=== PATIENT | male | born 2000 | race Caucasian/White ===

== ENCOUNTER 2020-05-02 15:48 | Emergency (ER) | payer SELFPAY ==
[~2020-05-02] VITALS: Ht 185.4 cm; Wt 83.9 kg
[2020-05-02] MEDS ORDERED: ONDANSETRON HCL 4 MG/2 ML VIAL IV ONE (16:00)
[2020-05-02] MEDS ORDERED: HYDROmorphone HCL 2 MG/ML VL IV ONE (16:00)
[2020-05-02] MEDS ORDERED: HYDROmorphone HCL 2 MG/ML VL ONE (16:02)
[2020-05-02] MEDS ORDERED: ONDANSETRON HCL 4 MG/2 ML VIAL ONE (16:02)
[2020-05-02] MEDS ORDERED: KETAMINE HCL 10 ML ONE (16:15)
[2020-05-02] MEDS ORDERED: KETAMINE 50mg/ML 10ml Vial (500mg/10ml) IV ONE (16:15)
[2020-05-02] MEDS ORDERED: PROPOFOL 0 ML IV ONE (16:16)
[2020-05-02 17:30] VITALS: BP 138/83
== END 2020-05-02 18:11 | disposition home or self-care (01) ==
LOC: ER 15:48 → EDBD 15:48 → EDSEX 15:48 → ER 18:11
DX: S43.005A Unspecified dislocation of left shoulder joint, initial encounter (principal); S42.292A Other displaced fracture of upper end of left humerus, initial encounter for closed fracture; F17.210 Nicotine dependence, cigarettes, uncomplicated; X58.XXXA Exposure to other specified factors, initial encounter; Y93.89 Activity, other specified; Y92.89 Other specified places as the place of occurrence of the external cause; Y99.8 Other external cause status
CPT/HCPCS: 23650; 73030; 96374; 96375; 99285; J1170; J2405; J2704